=== PATIENT | male | born 1965 | race Caucasian/White ===

== ENCOUNTER 2020-06-15 13:37 | Observation (INO) | payer OTHER ==
[2020-06-15] MEDS ORDERED: SODIUM CHLORIDE 0.9% 1,000 ML IV STA (14:32)
--- NOTE | 2020-06-15 14:36 | ED ---
General Adult HPI - General Chief complaint: Seizure Stated complaint: seizure, syncopal episode Time Seen by Provider: 06/15/20 14:00 Source: patient, RN notes reviewed Mode of arrival: wheelchair Limitations: no limitations - History of Present Illness Initial comments: 55-year-old male presents emergency Department chief complaint of right sided back, rib pain, syncopal episode. Patient states she's had some pain in his back in which he felt he just strained it. Patient states that Saturday night into the morning he developed some severe pain this evening muscular in nature after his muscle relaxer were off. He states that for the bathroom and states that he was very diaphoretic and he felt lightheaded and which she then woke up on the ground with his about him. Patient states she's that he was shaking he did lose control of his bladder. Patient states that he is unsure what happened. He states he went in/himself with cold and hot water and he felt greatly improved and symptoms resolved. Patient states that he again had anoth er episode earlier today in which the pain was severe. Patient is concerned as he was scheduled for stress test yesterday but could not complete this. He states he was told he had an abnormal EKG. Patient states he had a heart cath 12 years ago and had some valve issue. Patient states his pain is mild this time. He does have severe pain with deep inspiration. He feels short of breath. He has no nausea vomiting diarrhea constipation currently. - Related Data Home Medications Medication Instructions Recorded Confirmed No Known Home Medications 07/26/15 07/26/15 Allergies Allergy/AdvReac Type Severity Reaction Status Date / Time No Known Allergies Allergy Verified 06/15/20 13:54 Review of Systems ROS Statement: Those systems with pertinent positive or pertinent negative responses have been documented in the HPI. ROS Other: All systems not noted in ROS Statement are negative. Past Medical History Past Medical History: Hyperlipidemia Additional Past Medical History / Comment(s): HX KIDNEY STONES History of Any Multi-Drug Resistant Organisms: None Reported Past Surgical History: Adenoidectomy, Heart Catheterization, Orthopedic Surgery, Tonsillectomy Additional Past Surgical History / Comment(s): RT ROTATOR CUFF REPAIRED Past Anesthesia/Blood Transfusion Reactions: No Reported Reaction Past Psychological History: No Psychological Hx Reported Smoking Status: Never smoker Past Alcohol Use History: Occasional Past Drug Use History: None Reported - Past Family History Mother Family Medical History: No Reported History General Exam Limitations: no limitations General appearance: alert, in no apparent distress Head exam: Present: atraumatic, normocephalic, normal inspection Eye exam: Present: normal appearance, PERRL, EOMI. Absent: scleral icterus, conjunctival injection, periorbital swelling ENT exam: Present: normal exam, normal oropharynx, mucous membranes moist, TM's normal bilaterally Neck exam: Present: normal inspection, full ROM. Absent: tenderness, meningismus, lymphadenopathy Respiratory exam: Present: normal lung sounds bilaterally, chest wall tenderness (Right lower rib posterior to lateral). Absent: respiratory distress, wheezes, rales, rhonchi, stridor Cardiovascular Exam: Present: regular rate, normal rhythm, normal heart sounds. Absent: systolic murmur, diastolic murmur, rubs, gallop, clicks GI/Abdominal exam: Present: soft, normal bowel sounds. Absent: distended, tenderness, guarding, rebound, rigid Back exam: Absent: CVA tenderness (R), CVA tenderness (L) Neurological exam: Present: alert, oriented X3, CN II-XII intact, reflexes normal. Absent: motor sensory deficit Skin exam: Present: warm, dry, intact, normal color. Absent: rash Course Vital Signs 06/15/20 13:49 Temperature 98.3 F Pulse Rate 69 Respiratory 16 Rate Blood Pressure 102/59 O2 Sat by Pulse 98 Oximetry EKG Findings - EKG Comments: EKG Findings:: EKG performed at 14:57 sinus bradycardia with a rate of 40. 206 QRS 92 QT/QTC 42/392 Medical Decision Making - Medical Decision Making 55-year-old male presented for syncopal episode. Patient's found to have bradycardia with a rate of 40. Patient did have a syncopal episode may related to this. Patient will be admitted for evaluation by medical assisting program director. - Lab Data Result diagrams: 06/15/20 14:47 06/15/20 14:47 Lab Results 06/15/20 06/15/20 06/15/20 Range/Units 14:47 14:47 14:47 WBC 5.7 (3.8-10.6) k/uL RBC 4.61 (4.30-5.90) m/uL Hgb 13.1 (13.0-17.5) gm/dL Hct 39.7 (39.0-53.0) % MCV 86.1 (80.0-100.0) fL MCH 28.5 (25.0-35.0) pg MCHC 33.1 (31.0-37.0) g/dL RDW 12.7 (11.5-15.5) % Plt Count 205 (150-450) k/uL Neutrophils % 59 % Lymphocytes % 30 % Monocytes % 6 % Eosinophils % 3 % Basophils % 1 % Neutrophils # 3.4 (1.3-7.7) k/uL Lymphocytes # 1.7 (1.0-4.8) k/uL Monocytes # 0.4 (0-1.0) k/uL Eosinophils # 0.2 (0-0.7) k/uL Basophils # 0.0 (0-0.2) k/uL PT 9.7 (9.0-12.0) sec INR 0.9 (<1.2) APTT 22.4 (22.0-30.0) sec D-Dimer 0.86 H (<0.60) mg/L FEU Sodium (137-145) mmol/L Potassium (3.5-5.1) mmol/L Chloride (98-107) mmol/L Carbon Dioxide (22-30) mmol/L Anion Gap mmol/L BUN (9-20) mg/dL Creatinine (0.66-1.25) mg/dL Est GFR (CKD-EPI)AfAm (>60 ml/min/1.73 sqM) Est GFR (CKD-EPI)NonAf (>60 ml/min/1.73 sqM) Glucose (74-99) mg/dL Calcium (8.4-10.2) mg/dL Magnesium (1.6-2.3) mg/dL Total Bilirubin (0.2-1.3) mg/dL AST (17-59) U/L ALT (4-49) U/L Alkaline Phosphatase (38-126) U/L Creatine Kinase (55-170) U/L Troponin I (0.000-0.034) ng/mL Total Protein (6.3-8.2) g/dL Albumin (3.5-5.0) g/dL Urine Color Light Yellow Urine Appearance Clear (Clear) Urine pH 6.0 (5.0-8.0) Ur Specific [place] 1.007 (1.001-1.035) Urine Protein Negative (Negative) Urine Glucose (UA) Negative (Negative) Urine Ketones Negative (Negative) Urine Blood Negative (Negative) Urine Nitrite Negative (Negative) Urine Bilirubin Negative (Negative) Urine Urobilinogen <2.0 (<2.0) mg/dL Ur Leukocyte Esterase Negative (Negative) 06/15/20 06/15/20 Range/Units 14:47 14:47 WBC (3.8-10.6) k/uL RBC (4.30-5.90) m/uL Hgb (13.0-17.5) gm/dL Hct (39.0-53.0) % MCV (80.0-100.0) fL MCH (25.0-35.0) pg MCHC (31.0-37.0) g/dL RDW (11.5-15.5) % Plt Count (150-450) k/uL Neutrophils % % Lymphocytes % % Monocytes % % Eosinophils % % Basophils % % Neutrophils # (1.3-7.7) k/uL Lymphocytes # (1.0-4.8) k/uL Monocytes # (0-1.0) k/uL Eosinophils # (0-0.7) k/uL Basophils # (0-0.2) k/uL PT (9.0-12.0) sec INR (<1.2) APTT (22.0-30.0) sec D-Dimer (<0.60) mg/L FEU Sodium 138 (137-145) mmol/L Potassium 4.5 (3.5-5.1) mmol/L Chloride 106 (98-107) mmol/L Carbon Dioxide 23 (22-30) mmol/L Anion Gap 9 mmol/L BUN 19 (9-20) mg/dL Creatinine 0.85 (0.66-1.25) mg/dL Est GFR (CKD-EPI)AfAm >90 (>60 ml/min/1.73 sqM) Est GFR (CKD-EPI)NonAf >90 (>60 ml/min/1.73 sqM) Glucose 88 (74-99) mg/dL Calcium 9.5 (8.4-10.2) mg/dL Magnesium 2.3 (1.6-2.3) mg/dL Total Bilirubin 0.6 (0.2-1.3) mg/dL AST 21 (17-59) U/L ALT 18 (4-49) U/L Alkaline Phosphatase 78 (38-126) U/L Creatine Kinase 74 (55-170) U/L Troponin I <0.012 (0.000-0.034) ng/mL Total Protein 7.8 (6.3-8.2) g/dL Albumin 4.8 (3.5-5.0) g/dL Urine Color Urine Appearance (Clear) Urine pH (5.0-8.0) Ur Specific [place] (1.001-1.035) Urine Protein (Negative) Urine Glucose (UA) (Negative) Urine Ketones (Negative) Urine Blood (Negative) Urine Nitrite (Negative) Urine Bilirubin (Negative) Urine Urobilinogen (<2.0) mg/dL Ur Leukocyte Esterase (Negative) Disposition Clinical Impression: Bradycardia, Syncope, Back pain Disposition: ADMITTED IP TO THIS HOSP Condition: Fair Referrals: Aparna Singh III, MD [Primary Care Provider] - 1-2 days
[2020-06-15 15:01] LABS: Basophils % (A) 1 %; Eosinophils # (A) 0.2 k/uL (0-0.7); Eosinophils % (A) 3 %; HCT 39.7 % (39.0-53.0); HGB 13.1 gm/dL (13.0-17.5); Lymphocytes # (A) 1.7 k/uL (1.0-4.8); Lymphocytes % (A) 30 %; MCH 28.5 pg (25.0-35.0); MCHC 33.1 g/dL (31.0-37.0); MCV 86.1 fL (80.0-100.0); Monocytes # (A) 0.4 k/uL (0-1.0); Monocytes % (A) 6 %; Neutrophils # (A) 3.4 k/uL (1.3-7.7); Neutrophils % (A) 59 %; Platelet Count 205 k/uL (150-450); RBC 4.61 m/uL (4.30-5.90); RDW 12.7 % (11.5-15.5); WBC 5.7 k/uL (3.8-10.6)
[2020-06-15 15:09] LABS: ALT 18 U/L (4-49); AST 21 U/L (17-59); African American GFR (CKD) >90 (>60 ml/min/1.73 sqM); Albumin 4.8 g/dL (3.5-5.0); Alkaline Phosphatase 78 U/L (38-126); Anion Gap 9 mmol/L; Blood Urea Nitrogen 19 mg/dL (9-20); Calcium 9.5 mg/dL (8.4-10.2); Carbon Dioxide 23 mmol/L (22-30); Chloride 106 mmol/L (98-107); Creatine Kinase 74 U/L (55-170); Glucose 88 mg/dL (74-99); Magnesium 2.3 mg/dL (1.6-2.3); Non-African American GFR(CKD) >90 (>60 ml/min/1.73 sqM); Potassium 4.5 mmol/L (3.5-5.1); Sodium 138 mmol/L (137-145); Total Bilirubin 0.6 mg/dL (0.2-1.3); Total Protein 7.8 g/dL (6.3-8.2)
[2020-06-15 15:12] LABS: Appearance,Urine Clear (Clear); Bilirubin,Urine Negative (Negative); Blood,Urine Negative (Negative); Color,Urine Light Yellow; Glucose,Urine (UA) Negative (Negative); Ketones,Urine Negative (Negative); Leukocyte Esterase,Urine Negative (Negative); Nitrite,Urine Negative (Negative); Protein,Urine Negative (Negative); Specific Gravity,Urine 1.007 (1.001-1.035); Urobilinogen,Urine <2.0 mg/dL (<2.0)
[2020-06-15 15:19] LABS: INR 0.9 (<1.2); Partial Thromboplastin Time 22.4 sec (22.0-30.0); Prothrombin Time 9.7 sec (9.0-12.0)
[2020-06-15 15:25] LABS: D-Dimer 0.86 mg/L FEU (<0.60)
--- NOTE | 2020-06-15 15:30 | XR ---
EXAMINATION TYPE: XR chest 2V DATE OF EXAM: 06/15/2020 COMPARISON: None HISTORY: 55-year-old male with syncope TECHNIQUE: PA and lateral views FINDINGS: The cardiomediastinal silhouette, aorta, and pulmonary vasculature are within normal limits. Lungs an d pleural spaces are clear. IMPRESSION: No acute cardiopulmonary process.
--- NOTE | 2020-06-15 16:33 | CT ---
EXAMINATION TYPE: CT chest angio for PE DATE OF EXAM: 06/15/2020 COMPARISON: Chest x-ray same date HISTORY: back spasms causing difficulty breathing CT DLP: 432.1 mGycm Automated exposure control for dose reduction was used. CONTRAST: CT Chest for pulmonary embolism performed with with IV Contrast, patient injected with 100 mL of Isov ue 370. Three-dimensional reconstructions performed on an alternate workstation. FINDINGS: LUNGS: The lungs are grossly clear, there is no concerning parenchymal mass or nodule identified. T here is no pleural effusion or pneumothorax seen. The tracheobronchial tree is patent. MEDIASTINUM: There is satisfactory enhancement of the pulmonary artery and its branches, there is no CT evidence for pulmonary embolism. There are no greater than 1 cm hilar or mediastinal lymph nodes. Heart is overlying enlarged. No pericardial effusion is seen. AORTA: No additional significant abnormality is seen. OTHER: Probable cortical cyst present lower pole left kidney measuring approximately 19 mm IMPRESSION: No evident pulmonary embolism. Borderline cardiomegaly.
[2020-06-15] MEDS ORDERED: NITROGLYCERIN SL TABS 0.4 MG TAB SUBLINGUAL PRN (16:49)
[2020-06-15] MEDS: HYDROcodone/APAP 5-325MG 1 EACH TAB PO PRN (20:50)
[2020-06-16] MEDS: HYDROcodone/APAP 5-325MG 1 EACH TAB PO PRN (03:22)
[2020-06-16 04:40] LABS: Cholesterol 251 mg/dL (<200); HDL Cholesterol 48 mg/dL (40-60); LDL Cholesterol,Calculated 161 mg/dL (0-99); Triglycerides 211 mg/dL (<150)
[2020-06-16] MEDS ORDERED: IBUPROFEN 600 MG TAB PO STA (07:59)
--- NOTE | 2020-06-16 10:13 | P.CRDCN ---
History of Present Illness History of present illness: HISTORY OF PRESENTING ILLNESS This is a pleasant 55-year-old male past medical history significant for dyslipidemia and former nicotine dependence. He denies prior history of coronary artery disease. He states he underwent a cardiac catheterization approximately 12 years ago that was unremarkable other than having what he describes as a "sloppy" valve. We have been asked to see in consultation for syncope. He states he injured his back on Saturday lifting a generator. He has been having back spasms on the right mid thoracic region since that time. Yesterday morning he woke up to take some more anti-inflammatory medication and while walking he stops to turn his air conditioner on at the thermostat in the next thing he remembers his was waking him up on the floor. He denies feeling dizzy prior to passing out. He had no symptoms of chest pain, shortness of breath, palpitations, nausea, vomiting or diaphoresis. When he woke up his told him that he had what she thought was a seizure. He apparently became very stiff and rigid and his eyes were flapping opening closed and he did lose control of his bladder. When he woke up he states he was drenched in sweat. He still denies any dizziness or chest pain. He continues to have significant discomfort in the right thoracic region that is episodic. He recently saw his primary care physician and was scheduled to undergo an outpatient stress test in the office on Saturday however he did cancel this appointment secondary to his back discomfort. DIAGNOSTICS EKG revealsbradycardia heart rate of 40. Telemetry tracings reveal persistent sinus bradycardia. Chest xray negative for acute cardiopulmonary process. CT of the chest is negative for pulmonary embolism. Laboratory reviewed, BC unremarkable, d-dimer 0.86, sodium 138, potassium 4.5, creatinine 0.85, cardiac enzymes negative 2, LDL 161 and TSH 1.62. He takes no daily cardiac medications. REVIEW OF SYSTEMS At the time of my exam: CONSTITUTIONAL: Denies fever or chills. CARDIOVASCULAR: Denies chest pain, shortness of breath, orthopnea, PND or palpitations. RESPIRATORY: Denies cough. GASTROINTESTINAL: Denies abdominal pain, diarrhea, constipation, nausea or vomiting. MUSCULOSKELETAL: Denies myalgias. NEUROLOGIC: Denies numbness, tingling or weakness. ENDOCRINE: Denies fatigue, weight change, polydipsia or polyurina. GENITOURINARY: Denies burning, hematuria or urgency with micturation. HEMATOLOGIC: Denies history of anemia or bleeding. PHYSICAL EXAMINATION Blood pressure 109/63 heart rate 52 afebrile and maintaining oxygen saturation on room air. CONSTITUTIONAL: No apparent distress. HEENT: Head is normocephalic. Pupils are equal, round. Sclerae anicteric. Mucous membranes of the mouth are moist. No JVD. No carotid bruit. CHEST EXAMINATION: Lungs are clear to auscultation. No chest wall tenderness is noted on palpation or with deep breathing. HEART EXAMINATION: Regular rate and rhythm. S1, S2 heard. No murmurs, gallops or rub. ABDOMEN: Soft, nontender. Positive bowel sounds. EXTREMITIES: 2+ peripheral pulses, no lower extremity edema and no calf tenderness. NEUROLOGIC EXAMINATION: Patient is awake, alert and oriented x3. ASSESSMENT Syncope Possible seizure activity Back injury Dyslipidemia PLAN This episode of syncope likely related to vagal response to significant pain however on clear if the bradycardia played a roll or what he had was a seizure. According to the patient his heart rate has always run on the low side and he is asymptomatic on a regular basis. We will continue to monitor on telemetry and apply an event monitor upon discharge. Obtain 2D echocardiogram and doppler study to assess cardiac structure and function. Recommend neurology evaluation. Thank you kindly for this consultation. Nurse Practitioner note has been reviewed, I agree with a documented findings and plan of care. Patient was seen and examined. Past Medical History Past Medical History: Hyperlipidemia Additional Past Medical History / Comment(s): HX KIDNEY STONES History of Any Multi-Drug Resistant Organisms: None Reported Past Surgical History: Adenoidectomy, Heart Catheterization, Orthopedic Surgery, Tonsillectomy Additional Past Surgical History / Comment(s): RT ROTATOR CUFF REPAIRED Past Anesthesia/Blood Transfusion Reactions: No Reported Reaction Past Psychological History: No Psychological Hx Reported Smoking Status: Former smoker Past Alcohol Use History: Occasional Past Drug Use History: None Reported - Past Family History Mother Family Medical History: No Reported History Medications and Allergies Home Medications Medication Instructions Recorded Confirmed Type Ibuprofen [Motrin Ib] 400 mg PO Q6H PRN 06/15/20 06/15/20 History Ibuprofen [Motrin Ib] 600 mg PO DAILY 06/15/20 06/15/20 History Allergies Allergy/AdvReac Type Severity Reaction Status Date / Time No Known Allergies Allergy Verified 06/15/20 17:14 Physical Exam Vitals: Vital Signs Temp Pulse Pulse Resp BP BP Pulse Ox 06/16/20 03:00 97.6 F 62 16 100/60 95 06/15/20 21:00 18 06/15/20 19:42 97.7 F 52 L 18 113/67 98 06/15/20 19:16 98.3 F 60 18 126/83 99 06/15/20 18:00 60 18 99 06/15/20 17:00 57 L 18 99 06/15/20 16:54 59 L 18 126/83 99 06/15/20 15:54 58 L 18 120/95 99 06/15/20 14:54 18 06/15/20 13:54 18 06/15/20 13:49 98.3 F 69 16 102/59 98 Intake and Output 06/15/20 06/16/20 06/16/20 22:59 06:59 14:59 Other: Voiding Method Toilet Toilet # Voids 1 Weight 83.915 kg Results 06/15/20 14:47 06/15/20 14:47 Cardiac Enzymes 06/15/20 06/15/20 Range/Units 14:47 14:47 AST 21 (17-59) U/L Troponin I <0.012 (0.000-0.034) ng/mL Coagulation 06/15/20 Range/Units 14:47 PT 9.7 (9.0-12.0) sec APTT 22.4 (22.0-30.0) sec Lipids 06/15/20 Range/Units 14:47 Triglycerides 211 H (<150) mg/dL Cholesterol 251 H (<200) mg/dL HDL Cholesterol 48 (40-60) mg/dL CBC 06/15/20 Range/Units 14:47 WBC 5.7 (3.8-10.6) k/uL RBC 4.61 (4.30-5.90) m/uL Hgb 13.1 (13.0-17.5) gm/dL Hct 39.7 (39.0-53.0) % Plt Count 205 (150-450) k/uL Comprehensive Metabolic Panel 06/15/20 Range/Units 14:47 Sodium 138 (137-145) mmol/L Potassium 4.5 (3.5-5.1) mmol/L Chloride 106 (98-107) mmol/L Carbon Dioxide 23 (22-30) mmol/L BUN 19 (9-20) mg/dL Creatinine 0.85 (0.66-1.25) mg/dL Glucose 88 (74-99) mg/dL Calcium 9.5 (8.4-10.2) mg/dL AST 21 (17-59) U/L ALT 18 (4-49) U/L Alkaline Phosphatase 78 (38-126) U/L Total Protein 7.8 (6.3-8.2) g/dL Albumin 4.8 (3.5-5.0) g/dL Current Medications Generic Name Dose Route Start Last Admin Trade Name Freq PRN Reason Stop Dose Admin Hydrocodone Bitart/Acetaminophen 1 each 06/15/20 20:35 06/16/20 03:22 [place] 5-325 PO 1 each Q6HR PRN Administration Pain Nitroglycerin 0.4 mg 06/15/20 16:49 Nitrostat SUBLINGUAL Q5M PRN Chest Pain Intake and Output 06/15/20 06/16/20 06/16/20 22:59 06:59 14:59 Other: Voiding Method Toilet Toilet # Voids 1 Weight 83.915 kg 06/15/20 14:47 06/15/20 14:47
--- NOTE | 2020-06-16 11:56 | P.HPIM ---
History of Present Illness H&P Date: 06/16/20 Chief Complaint: Syncopal episode and right-sided low back pain Mr. Tamayo is a 55-year-old male, who follows with Dr. Singh in outpatient setting, with a past medical history of hyperlipidemia, nephrolithiasis coming in with a chief complaint of right-sided upper muscle spasm. 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 His was in on the room and when he came to check on him she told him that his eyes were popped out and that he lost control of his bladder. Patient denies having any tongue bites. He could only feel a sharp pain in his back and later noticed that he was on the floor. Patient denies hitting his head. He denies having any headaches or blurring of vision. Patient states he had an episode of passing out in September 2019, that he thinks happened because he of alcohol intoxication. Patient denies having any history of seizures. He denies having any family history of seizures. Patient drinks only over the weekends. Patient denied having any chest pain or palpitations. He does not have any underlying cardiac history. He has 10 pack years of smoking quit 10-15 years back. He does not take any medications on a regular basis. When he had this back pain he took a muscle relaxant from his friend, he does not know what medication it is but he took 2 pills. His pain is mostly on the right upper back, does not radiate. It is worse and on turning or twisting in certain angle. Patient denies having any tingling or numbness in his feet. He thinks he tore a muscle. Patient denies having any pain radiating from the back to his groin. No blood in his urine. No dysuria or hematuria. Patient denies having any fevers chills or rigors. Patient also states that he was scheduled for a stress test but could not do it as he was told that he had an abnormal EKG he did states that he had a cardiac cath 12 years ago had some issues. In the ER patient had an EKG showing sinus bradycardia with a heart rate of 20. Patient also had a CTA of the chest showing no evidence of PE, borderline cardiomegaly. Probable cortical cyst present in the left lower lobe measuring approximately 19 mm. Patient's labs are reviewed white count of 5.7, hemoglobin 13.1 platelets 205. PT/INR normal. Sodium 138, pronation 4.5, chloride 103, bicarbonate 28, when necessary 19, creatinine 0.85. Urine analysis is negative for leukocyte esterase or blood. Review of Systems EVIEW OF SYSTEMS: CONSTITUTIONAL: No fever, no malaise, no fatigue. HEENT: No recent visual problems or hearing problems. Denied any sore throat. CARDIOVASCULAR: No chest pain, palpitations. No lower extremity edema. PULMONARY: no cough, no hemoptysis. GASTROINTESTINAL: No diarrhea, no nausea, no abdominal pain. NEUROLOGICAL: As per HPI HEMATOLOGICAL: Denies any bleeding or petechiae. GENITOURINARY: Denies any burning micturition, frequency, or urgency. MUSCULOSKELETAL/RHEUMATOLOGICAL: No joint swelling or pain ENDOCRINE: Denies any polyuria or polydipsia. The rest of the 13-point review of systems is negative. Past Medical History Past Medical History: Hyperlipidemia Additional Past Medical History / Comment(s): HX KIDNEY STONES History of Any Multi-Drug Resistant Organisms: None Reported Past Surgical History: Adenoidectomy, Heart Catheterization, Orthopedic Surgery, Tonsillectomy Additional Past Surgical History / Comment(s): RT ROTATOR CUFF REPAIRED Past Anesthesia/Blood Transfusion Reactions: No Reported Reaction Past Psychological History: No Psychological Hx Reported Smoking Status: Former smoker Past Alcohol Use History: Occasional Past Drug Use History: None Reported - Past Family History Mother Family Medical History: No Reported History Medications and Allergies Home Medications Medication Instructions Recorded Confirmed Type Ibuprofen [Motrin Ib] 400 mg PO Q6H PRN 06/15/20 06/15/20 History Ibuprofen [Motrin Ib] 600 mg PO DAILY 06/15/20 06/15/20 History Allergies Allergy/AdvReac Type Severity Reaction Status Date / Time No Known Allergies Allergy Verified 06/15/20 17:14 Physical Exam Vitals: Vital Signs Temp Pulse Pulse Resp BP BP Pulse Ox 06/16/20 09:00 52 L 14 06/16/20 08:00 97.5 F L 52 L 14 109/63 98 06/16/20 03:00 97.6 F 62 16 100/60 95 06/15/20 21:00 18 06/15/20 19:42 97.7 F 52 L 18 113/67 98 06/15/20 19:16 98.3 F 60 18 126/83 99 06/15/20 18:00 60 18 99 06/15/20 17:00 57 L 18 99 06/15/20 16:54 59 L 18 126/83 99 06/15/20 15:54 58 L 18 120/95 99 06/15/20 14:54 18 06/15/20 13:54 18 06/15/20 13:49 98.3 F 69 16 102/59 98 Intake and Output 06/15/20 06/16/20 06/16/20 22:59 06:59 14:59 Intake Total 240 Balance 240 Intake: Oral 240 Other: Voiding Method Toilet Toilet Toilet # Voids 1 1 Weight 83.915 kg PHYSICAL EXAMINATION: GENERAL: Appears to be no acute distress. HEENT: Pupils are round and equally reacting to light. EOMI. noscleral icterus. No conjunctival pallor. Normocephalic, atraumatic. CARDIOVASCULAR: S 1 , S 2 heard . No additional sounds. PULMONARY: Bilateral breath sounds are positive. No wheeze or crackles. ABDOMEN: Soft, nontender, nondistended, normoactive bowel sounds. No palpable organomegaly. MUSCULOSKELETAL: Tenderness in the upper right side of the back on deep palpation. No midline point tenderness over the back EXTREMITIES: No cyanosis, clubbing, mild pedal edema. NEUROLOGICAL: Gross neurological examination did not reveal any focal deficits. SKIN: No rash Results CBC & Chem 7: 06/15/20 14:47 06/15/20 14:47 Labs: Abnormal Lab Results - Last 24 Hours (Table) 06/15/20 06/15/20 Range/Units 14:47 14:47 D-Dimer 0.86 H (<0.60) mg/L FEU Triglycerides 211 H (<150) mg/dL Cholesterol 251 H (<200) mg/dL LDL Cholesterol, Calc 161 H (0-99) mg/dL Assessment and Plan Assessment: ASSESSMENT Syncopal episode Severe right-sided back muscle spasm Bradycardia Dyslipidemia PLAN: Patient had severe right-sided back muscle spasm that made him have a syncopal episode. Patient lost control of his bladder. We'll have neurology consult. His EKG was showing sinus bradycardia as well. Patient had CTA of the chest that was negative for PE. Will get an MRI of the back. Cardiology on board. Further recommendations to follow depending on the progress of the patient.
--- NOTE | 2020-06-16 12:00 | ECHOF ---
Referral Reason:syncope MEASUREMENTS -------- HEIGHT: 185.4 cm WEIGHT: 83.9 kg BP: 100/60 RVIDd: 3.1 cm (< 3.3) IVSd: 1.1 cm (0.6 - 1.1) LVIDd: 5.2 cm (3.9 - 5.3) LVPWd: 1.1 cm (0.6 - 1.1) IVSs: 1.8 cm LVIDs: 3.4 cm LVPWs: 1.7 cm LA Diam: 3.8 cm (2.7 - 3.8) Ao Diam: 3.8 cm (2.0 - 3.7) AV Cusp: 2.4 cm (1.5 - 2.6) MV EXCURSION: 19.089 mm (> 18.000) MV EF SLOPE: 127 mm/s (70 - 150) EPSS: 0.7 cm MV E Darwin: 0.75 m/s MV DecT: 312 ms MV A Darwin: 0.66 m/s MV E/A Ratio: 1.14 AR PHT: 853 ms RAP: 5.00 mmHg RVSP: 28.12 mmHg FINDINGS -------- Resting bradycardia (HR<60bpm). This was a technically good study. The left ventricular size is normal. There is borderline concentric left ventricular hypertrophy. Overall left ventricular systolic function is normal with, an EF between 55 - 60 %. The right ventricle is normal in size. Normal LA size by volume 22+/-6 ml/m2. The right atrium is normal in size. Interatrial and interventricular septum intact. Aortic valve is trileaflet and is mildly thickened. Trace to mild aortic regurgitation. Mild mitral regurgitation is present. Mild tricuspid regurgitation present. Right ventricular systolic pressure is normal at < 35 mmHg. There is no pulmonic regurgitation present. The aortic root is dilated measuring 3.8cm. The inferior vena cava is mildly dilated. There is no pericardial effusion. CONCLUSIONS -------- 1. Resting bradycardia (HR<60bpm). 2. The left ventricular size is normal. 3. There is borderline concentric left ventricular hypertrophy. 4. Overall left ventricular systolic function is normal with, an EF between 55 - 60 %. 5. Aortic valve is trileaflet and is mildly thickened. 6. Trace to mild aortic regurgitation. 7. Mild mitral regurgitation is present. 8. The aortic root is dilated measuring 3.8cm. 9. There is no pericardial effusion. MAC ARTIST: Yelena Stovall RDCS
--- NOTE | 2020-06-16 14:37 | P.CNNES ---
History of Present Illness Consult date: 06/16/20 Requesting physician: Diya Brand Reason for Consult: Possible seizure History of Present Illness: This is a 55-year-old right-handed gentleman with medical history of hyperlipidemia, nephrolithiasis, ex-tobacco use that presented to the emergency department on 06/15/2020 for episode of loss of consciousness. Patient stated that on 06/13/2020 and he was the lifting generator and felt like he pulled a muscle he was having pain in the right lower of the rib area around the flank area. He felt was like 8-9 out of 10 he couldn't describe the pain he would have these episodes of muscle spasm. He took a new muscle relaxant pill from his friend he doesn't know the name he took 2 pills that day. Then on 06/14/2020 around 1:30 AM the patient woke up because of the pain and that he went to the get some the ibuprofen then went to change the thermostat and all of a sudden the he found himself on the floor. When woke up he found his next to him. Per the patient the the woke up from the noise of fall. He said prior to the episode he was having this flushing episode because of the pain that he was having. He didn't have any lightheadedness any dizziness any of her blurry vision any chest pain or irregular heartbeat. When he woke up he had the urinary incontinence. His noted that his eyes was "popping out". did not note any jerking episodes or again and no eyes rolling back. The patient denies any tongue soreness or tongue bite. No bowel incontinence. Patient recovered the according to him very quickly. Patient also had an episode of passing out in the September 2019 but he stated that he was going to bathroom but he was heavily drunk at that time. Nobody witnessed the episode. He denied any all call use on the day of the passing out episode on 06/14/2020. Denies any fever. Of note patient has been having this right lower rib near the flank area pain for the last 2 months he said it started when he golfed about 2 months ago. But the pain was very mild. He says that stiff and then his kidney stone presentation. In the hospital the patient's workup was: Vital signs was blood pressure 102/59 presentation, heart rate of 69, respiratory rate is 16, temperature of 98.3 Fahrenheit oral, pulse ox 98 at room air. EKG which show was reported as marketed sinus bradycardia heart rate of 40. CTA of the chest was negative for a pulmonary embolism. 2-D echo was reported as ejection fraction of 55-60%. Resting bradycardia less than 60. Left ventricle size is normal. Review of Systems Review of system: The 12 point system was reviewed and apparent positive and negative per HPI. Past Medical History Past Medical History: Hyperlipidemia Additional Past Medical History / Comment(s): HX KIDNEY STONES History of Any Multi-Drug Resistant Organisms: None Reported Past Surgical History: Adenoidectomy, Heart Catheterization, Orthopedic Surgery, Tonsillectomy Additional Past Surgical History / Comment(s): RT ROTATOR CUFF REPAIRED Past Anesthesia/Blood Transfusion Reactions: No Reported Reaction Past Psychological History: No Psychological Hx Reported Smoking Status: Former smoker Past Alcohol Use History: Occasional Past Drug Use History: None Reported - Past Family History Mother Family Medical History: No Reported History Medications and Allergies Home Medications Medication Instructions Recorded Confirmed Type Ibuprofen [Motrin Ib] 400 mg PO Q6H PRN 06/15/20 06/15/20 History Ibuprofen [Motrin Ib] 600 mg PO DAILY 06/15/20 06/15/20 History Allergies Allergy/AdvReac Type Severity Reaction Status Date / Time No Known Allergies Allergy Verified 06/15/20 17:14 Physical Examination - Vital Signs Vital Signs: Vital Signs Temp Pulse Pulse Resp BP BP Pulse Ox 06/16/20 09:00 52 L 14 06/16/20 08:00 97.5 F L 52 L 14 109/63 98 06/16/20 03:00 97.6 F 62 16 100/60 95 06/15/20 21:00 18 06/15/20 19:42 97.7 F 52 L 18 113/67 98 06/15/20 19:16 98.3 F 60 18 126/83 99 06/15/20 18:00 60 18 99 06/15/20 17:00 57 L 18 99 06/15/20 16:54 59 L 18 126/83 99 06/15/20 15:54 58 L 18 120/95 99 06/15/20 14:54 18 06/15/20 13:54 18 06/15/20 13:49 98.3 F 69 16 102/59 98 Intake and Output 06/15/20 06/16/20 06/16/20 22:59 06:59 14:59 Intake Total 462 Balance 462 Intake: Oral 462 Other: Voiding Method Toilet Toilet Toilet # Voids 1 1 Weight 83.915 kg GENERAL: The patient is lying in bed and is not in acute distress. CHEST: The heart rate is regular rate rhythm. No murmurs to auscultation. LUNG: Clear to auscultation bilaterally no wheezing noted throughout. Not labored breathing. ABDOMEN/GI: Bowel sounds present in all 4 quadrants. No tenderness to palpation throughout. NEUROLOGICAL: Higher mental function: The patient is awake, alert, oriented to self, place and time. Patient is following commands. No aphasia and no neglect. Cranial nerves: The pupils are round, equal and reactive to light and accommo dation. Visual fowler are full to confrontation throughout. Extraocular movement is intact no nystagmus is noted. Facial sensation is normal to touch throughout. The facial strength is normal throughout. Hearing is normal bilaterally to hand rub. Tongue is midline and moved [id number] without any difficulty. No dysarthria is noted. Shoulder shrug is normal bilaterally. Motor: The strength is 5 over 5 throughout. Normal tone and bulk. Cerebellum: Normal finger to nose bilaterally. Sensation: Sensation is normal to touch throughout. Reflexes (right/left): Biceps 2+ throughout. Plantars are downgoing bilaterally. Results Lipid profile: Triglyceride is 211, cholesterol is 251, LDL is 161, HDL is 48. His TSH is 1.62. PT is 9.7, INR 0.9, PTT is 22.4. - Laboratory Findings CBC and BMP: 06/15/20 14:47 06/15/20 14:47 Abnormal Lab Findings: Abnormal Labs 06/15/20 06/15/20 14:47 14:47 D-Dimer 0.86 H Triglycerides 211 H Cholesterol 251 H LDL Cholesterol, Calc 161 H Assessment and Plan Assessment: Mr. Tamayo is a 55-year-old right-handed gentleman with medical history of hyperlipidemia, nephrolithiasis, ex-tobacco use that presented to the emergency department on 06/15/2020 for episode of loss of consciousness. On 06/13/2020 he has right flank pain after lifting something. Then 06/14/20 woke-up with pain and went change thermomator and felt drenched from pain then passed out with urinary incontinence. Per no jerking episodes. No tongue bite. No rolling of the eye backward. Patient recovered fairly quickly. Patient had an episode of passing out in September 2019 and the he said he was intoxicated. No history of seizures or family history of seizures. Sycopal episode. Seems more like vasovagal syncope (severe pain of right flank area and was sweating then had episode of syncope. Unlikely seizure. Bradycardia History of nephrolithiasis Plan: I'll order CT the brain that. I'll order routine EEG. Patient's episode does not seem like a seizure and likely seems more vasovagal syncope. His episode in September 2019 the was a result of intoxication. As a result I would not start him on any antiepileptic drugs at this time unless the EEG shows a seizure that captured. Cardiology is following up with the patient. Upon discharge the patient needs to follow up with a neurologist as outpatient. If patient continues to have these episodes consider repeating EEGs. Or consider long-term EEGs. Thank you for the consult. Irving Go M.D. Neuro-hospitalist Time with Patient: Greater than 30
--- NOTE | 2020-06-16 16:09 | MR ---
EXAMINATION TYPE: MR thoracic spine wo con DATE OF EXAM: 06/16/2020 COMPARISON: CTA chest from yesterday. HISTORY: Back pain/spasms TECHNIQUE: Multiplanar, multisequence imaging of thoracic spine is performed without contrast FINDINGS: Localizer shows reversal of normal cervical curvature centered C4-C5 level. Spinal cord sh ows normal course, caliber, and signal as it courses the thoracic spine. Vertebral body heights and alignment are satisfactory. There are multilevel small posterior disc herniations effacing anterior t hecal sac from T2-T3 through the T11-T12 levels on sagittal images. Heterogeneous Modic type I endpla te changes noted anterior T4-T5 level. Mild multilevel anterior spurring in the lower thoracic spine. Review of the axial images confirms multilevel small posterior disc herniations efface the anterior t hecal sac greatest in the mid thoracic spine. Visualized thorax and upper abdomen show no suspicious abnormality. Paraspinal muscle bulk is maintained. IMPRESSION: Multilevel small posterior disc herniations efface the anterior thecal sac.
[2020-06-16] MEDS: IBUPROFEN 600 MG TAB PO PRN ×2 (16:37→22:21)
--- NOTE | 2020-06-16 18:12 | CT ---
EXAMINATION TYPE: CT brain wo con DATE OF EXAM: 06/16/2020 COMPARISON: None HISTORY: 55-year-old male Seizure TECHNIQUE: Examination was done in axial plane without intravenous contrast. Coronal and sagittal r econstructions performed. CT DLP: 1141 mGycm Automated exposure control for dose reduction was used. FINDINGS: There is no evidence of acute intracranial hemorrhage, acute ischemic changes, mass, mass-effect, or extra-axial fluid collection. There is no effacement of cerebral sulci or basal subarachnoid cister ns. There is no hydrocephalus. There is no midline shift. Payne-white matter distinction is preserv ed. Scattered mild mucosal thickening ethmoid air cells. Orbits and globes are intact. Mastoid air cells are well pneumatized. IMPRESSION: No acute intracranial abnormality seen.
[2020-06-17] MEDS: IBUPROFEN 600 MG TAB PO PRN ×2 (03:58→10:02)
[2020-06-17] MEDS ORDERED: CYCLOBENZAPRINE 10 MG TAB PO PRN (08:52)
--- NOTE | 2020-06-17 10:24 | P.PN ---
Subjective HISTORY OF PRESENTING ILLNESS This is a pleasant 55-year-old male past medical history significant for dyslipidemia and former nicotine dependence. He denies prior history of coronary artery disease. He is seen and examined sitting up in the chair in no acute distress. He has had no further symptoms of syncope since arriving. He continues to complain of significant back discomfort. Echocardiogram obtained reveals normal LV systolic function with no significant valvular abnormalities. Blood pressure 124/78 heart rate 65 afebrile maintaining oxygen saturation on room air. Telemetry tracings continued to show sinus bradycardia mostly at night while sleeping. He is asymptomatic. Neurology is following and has ordered an EEG and an MRI of the back. PHYSICAL EXAMINATION CONSTITUTIONAL: No apparent distress. HEENT: Head is normocephalic. Pupils are equal, round. Sclerae anicteric. Mucous membranes of the mouth are moist. No JVD. No carotid bruit. CHEST EXAMINATION: Lungs are clear to auscultation. No chest wall tenderness is noted on palpation or with deep breathing. HEART EXAMINATION: Regular rate and rhythm. S1, S2 heard. No murmurs, gallops or rub. EXTREMITIES: 2+ peripheral pulses, no lower extremity edema and no calf tenderness. ASSESSMENT Syncope Possible seizure activity Back injury Dyslipidemia PLAN No evidence of bradycardia arrhythmia to account for his syncope. We will apply a 30 day event monitor upon discharge. Follow-up in the office with Dr. Guerra in 6 weeks. Recommend he has an outpatient sleep study. Nurse Practitioner note has been reviewed, I agree with a documented findings and plan of care. Patient was seen and examined. Objective - Vital Signs Vital signs: Vital Signs Temp 97.4 F L 06/17/20 09:00 Pulse 65 06/17/20 09:00 Resp 18 06/17/20 09:00 BP 124/78 06/17/20 09:00 Pulse Ox 100 06/17/20 09:00 Intake & Output 06/16/20 06/17/20 06/17/20 18:59 06:59 18:59 Intake Total 684 Balance 684 Intake: Oral 684 Other: Voiding Method Toilet Toilet # Voids 4 1 - Labs CBC & Chem 7: 06/15/20 14:47 06/15/20 14:47
[2020-06-17 16:22] VITALS: BP 98/60; PULSE 59; RESP 16; TEMP 97.8
--- NOTE | 2020-06-17 16:41 | EEG ---
ELECTROENCEPHALOGRAM REPORT DATE OF SERVICE: 06/17/2020 CLINICAL HISTORY: This is a 55-year-old gentleman with a reported history of hyperlipidemia, nephrolithiasis, that presented to the emergency department on 06/15/2020 after having an episode of loss of consciousness. This EEG was obtained to evaluate for seizure and epileptiform activity. EEG TYPE: A routine 21 channel EEG was performed with video using the 10-20 electrode placement system. His description, wakefulness, drowsiness and stage 2 sleep are obtained. During wakefulness, there is a posterior dominant rhythm of low to moderate voltage, reactive,. well modulated of 10 to 0.5 hertz activity. During drowsiness there is slowing and attenuation of the background. During stage 2 sleep, there are sleep spindles and K complexes. Interictal and ictal none. ACTIVATION PROCEDURE: Photic stimulation did not evoke a posterior driving response at 8 hertz symmetrically. Hyperventilation was not performed because of patient's clinical history. EEG DIAGNOSIS: This is a normal EEG. CLINICAL INTERPRETATION: This is a normal routine awake, drowsy, and sleep study. There is no focal slowing noted during the study. There is no epileptiform activity or seizure during the study. Clinical correlation is recommended. MMODL / IJN: [id number] / MTDClayton
--- NOTE | 2020-06-17 18:39 | MR ---
EXAMINATION TYPE: MR lumbar spine wo con DATE OF EXAM: 06/17/2020 COMPARISON: None HISTORY: Back pain Multiplanar multiecho imaging of the lumbar spine was performed with no contrast. Lumbar vertebra have normal alignment. There is mild uniform narrowing of lumbar disc spaces. There i s no compression fracture. There is minimal posterior disc bulging at all levels of the lumbar spine. There is developmentally adequate spinal canal and no spinal stenosis. The posterior elements are in tact. Sacroiliac joints are intact. There is no lumbar paraspinal mass. There is no compression fract ure. I see no significant neural foraminal narrowing. There is no evidence of focal bone destruction. IMPRESSION: Mild multilevel spondylotic changes. No fracture seen. No spinal stenosis. Minimal multilevel posteri or disc bulging.
--- NOTE | 2020-06-17 23:47 | P.DS ---
Providers Date of admission: 06/15/20 16:26 Expected date of discharge: 06/17/20 Attending physician: Cait Jolly Consults: 06/15/20 16:49 Consult Physician Urgent Consulting Provider: Kentrell Hendricks Consult Reason/Comments: Bradycardia, syncope Do you want consulting provider notified?: Yes 06/16/20 11:34 Consult Physician Routine Consulting Provider: Irving Go Consult Reason/Comments: possible seizure Do you want consulting provider notified?: Yes Primary care physician: Aparna Singh [facility] Course: Mr. Tamayo is a 55-year-old male, who follows with Dr. Singh in outpatient setting, with a past medical history of hyperlipidemia, nephrolithiasis coming in with a chief complaint of right-sided upper muscle spasm. Patient states that he was playing golf and pulled a muscle couple of weeks back and on Saturday glass tinter patient was trying to adjust his thermostat, when he turned he felt a severe sharp pain in his right upper back and fell. His was in on the room and when he came to check on him she told him that his eyes were popped out and that he lost control of his bladder. Patient denies having any tongue bites. He could only feel a sharp pain in his back and later noticed that he was on the floor. Patient denies hitting his head. He denies having any headaches or blurring of vision. Patient states he had an episode of passing out in September 2019, that he thinks happened because he of alcohol intoxication. Patient denies having any history of seizures. He denies having any family history of seizures. Patient drinks only over the weekends. Patient denied having any chest pain or palpitations. He does not have any underlying cardiac history. He has 10 pack years of smoking quit 10-15 years back. He does not take any medications on a regular basis. When he had this back pain he took a muscle relaxant from his friend, he does not know what medication it is but he took 2 pills. His pain is mostly on the right upper back, does not radiate. It is worse and on turning or twisting in certain angle. Patient denies having any tingling or numbness in his feet. He thinks he tore a muscle. Patient denies having any pain radiating from the back to his groin. No blood in his urine. No dysuria or hematuria. Patient denies having any fevers chills or rigors. Patient also states that he was scheduled for a stress test but could not do it as he was told that he had an abnormal EKG he did states that he had a cardiac cath 12 years ago had some issues. In the ER patient had an EKG showing sinus bradycardia with a heart rate of 20. Patient also had a CTA of the chest showing no evidence of PE, borderline cardiomegaly. Probable cortical cyst present in the left lower lobe measuring approximately 19 mm. Patient's labs are reviewed white count of 5.7, hemoglobin 13.1 platelets 205. PT/INR normal. Sodium 138, pronation 4.5, chloride 103, bicarbonate 28, when necessary 19, creatinine 0.85. Urine analysis is negative for leukocyte esterase or blood. Hospital course -neurology and cardiology consults were obtained. As a work-up for seizures, patient had a CT of the head that was negative he had EEG that was within normal limits. As the patient continued to have left-sided back pain and MRI of the lumbar spine/thoracic spine was obtained did not show any significant abnormalities. Cardiology suggested 30-day event monitor upon discharge and follow-up with Dr. Jolly in 6 weeks. He was also recommended to have a sleep study done as outpatient. So the patient was discharged home on Motrin. DISCHARGE DIAGNOSIS Syncopal episode Severe right-sided back muscle spasm Bradycardia Dyslipidemia Follow-up: He is advised to follow-up with his PCP Dr. Singh in 2-3 days. Also advised follow-up with cardiology in 6 weeks. Patient Condition at Discharge: Fair Plan - Discharge Summary New Discharge Prescriptions: No Action Ibuprofen [Motrin Ib] 600 mg PO DAILY Ibuprofen [Motrin Ib] 400 mg PO Q6H PRN PRN Reason: Pain Discharge Medication List Ibuprofen [Motrin Ib] 400 mg PO Q6H PRN 06/15/20 [History] Ibuprofen [Motrin Ib] 600 mg PO DAILY 06/15/20 [History] Follow up Appointment(s)/Referral(s): Aparna Singh III, MD [Primary Care Provider] - 1-2 days Rober Guerra MD [STAFF PHYSICIAN] - 6 Weeks Patient Instructions/Handouts: Syncope (GEN), Low Back Strain (GEN) Discharge Disposition: HOME SELF-CARE
== END 2020-06-17 19:35 | disposition home or self-care (01) ==
LOC: EC 13:37 → 3NCARDOBS 16:26
PROVIDERS: ADMIT Hospitalist; ATTEND Hospitalist
DX: R55 Syncope and collapse (principal); M62.830 Muscle spasm of back; R00.1 Bradycardia, unspecified; R61 Generalized hyperhidrosis; R32 Unspecified urinary incontinence; R06.02 Shortness of breath; R94.31 Abnormal electrocardiogram [ECG] [EKG]; E78.5 Hyperlipidemia, unspecified; M54.5 Low back pain; M54.6 Pain in thoracic spine; X50.0XXA Overexertion from strenuous movement or load, initial encounter; Z79.1 Long term (current) use of non-steroidal anti-inflammatories (NSAID); Z98.890 Other specified postprocedural states; Z87.442 Personal history of urinary calculi; Z87.891 Personal history of nicotine dependence
CPT/HCPCS: 93005 ×2; 96360; 99285; 36415; 95819; 93306; 93270; 85379; 80061; 80053; 84443; 82550; 83735; 84484 ×2; 85025; 85610; 85730; 81003; 71046; 70450; 71275; 72146; 72148; G0378 ×3; Q9967

== ENCOUNTER 2020-12-05 07:51 | Day surgery (SDC) | payer OTHER ==
[2020-12-01 13:11] VITALS: BMI 24.4
[~2020-12-05 07:51] MED LIST: ACETAMINOPHEN TAB 500 MG TAB PO PRN; HEPARIN SODIUM,PORCINE 5,000 UNIT/ML 1 ML VIAL SQ PRN
--- NOTE | 2020-12-05 07:54 | P.GSHP ---
History of Present Illness H&P Date: 12/05/20 Chief Complaint: Bilateral inguinal hernia 55-year-old male seen in the office in October. Patient previously had a known left inguinal hernia that was never repaired. Recently has had more symptoms on the right-hand side with a large bulge there as well. No prior repair bilaterally. No change in bowel habits. Past Medical History Past Medical History: Hyperlipidemia Additional Past Medical History / Comment(s): HX KIDNEY STONES History of Any Multi-Drug Resistant Organisms: None Reported Past Surgical History: Adenoidectomy, Heart Catheterization, Orthopedic Surgery, Tonsillectomy Additional Past Surgical History / Comment(s): RT ROTATOR CUFF REPAIRED, Past Anesthesia/Blood Transfusion Reactions: No Reported Reaction Smoking Status: Former smoker - Past Family History Mother Family Medical History: No Reported History Medications and Allergies Home Medications Medication Instructions Recorded Confirmed Type Ginkgo Biloba 500 mg PO DAILY 12/01/20 12/01/20 History Red Yeast Rice 600 mg PO DAILY 12/01/20 12/01/20 History Allergies Allergy/AdvReac Type Severity Reaction Status Date / Time No Known Allergies Allergy Verified 12/01/20 12:45 Surgical - Exam Physical exam: General: Well-developed, well-nourished HEENT: Normocephalic, sclerae nonicteric Abdomen: Nontender, nondistended, reducible bilateral inguinal hernia Extremities: No edema Neuro: Alert and oriented Assessment and Plan (1) Bilateral inguinal hernia Narrative/Plan: 55-year-old male with bilateral inguinal hernia on exam. We'll proceed with laparoscopic da Rupert assisted repair of bilateral inguinal hernia with mesh, possible open. Risks of bleeding, infection, recurrence, bladder and bowel injury, numbness, nerve injury, conversion to an open procedure were discussed with the patient. The patient understands and wishes to proceed. Current Visit: Yes Status: Acute Code(s): K40.20 - BI INGUINAL HERNIA, W/O OBST OR GANGRENE, NOT SPCF RECUR SNOMED Code(s): 91609745
[2020-12-05] MEDS ORDERED: ONDANSETRON 4 MG/2 ML VIAL ONE (08:08)
[2020-12-05] MEDS ORDERED: LACTATED RINGERS 1,000 ML IV SCH (08:10)
[2020-12-05] MEDS ORDERED: ONDANSETRON 4 MG/2 ML VIAL IVP ONE (08:10)
[2020-12-05] MEDS ORDERED: LIDOCAINE 1% (10MG/ML) FOR IV START INTRADERMA PRN (08:10)
[2020-12-05] MEDS ORDERED: MIDAZOLAM 2 MG/2 ML VIAL IV PRN (08:10)
[2020-12-05] MEDS ORDERED: DEXAMETHASONE SOD PHOSPHATE 4 MG/ML 1 ML VIAL IV ONE (08:10)
[2020-12-05] MEDS ORDERED: HYDROmorphone 0.5 MG/0.5 ML SYRINGE IVP PRN (08:10)
[2020-12-05 08:24] VITALS: RESP 16
[2020-12-05 09:03] LABS: Basophils # (A) 0.1 k/uL (0-0.2); Basophils % (A) 1 %; Eosinophils # (A) 0.3 k/uL (0-0.7); Eosinophils % (A) 7 %; HCT 37.3 % (39.0-53.0); HGB 13.5 gm/dL (13.0-17.5); Lymphocytes # (A) 1.4 k/uL (1.0-4.8); Lymphocytes % (A) 37 %; MCHC 36.1 g/dL (31.0-37.0); MCV 82.9 fL (80.0-100.0); Mean Platelet Volume 7.4; Monocytes # (A) 0.3 k/uL (0-1.0); Monocytes % (A) 7 %; Neutrophils # (A) 1.8 k/uL (1.3-7.7); Neutrophils % (A) 46 %; Platelet Count 181 k/uL (150-450); RDW 12.4 % (11.5-15.5); WBC 3.9 k/uL (3.8-10.6)
[2020-12-05] MEDS ORDERED: ROCURONIUM 10 MG/ML (10 ML VIAL) IV ONE (09:25)
[2020-12-05] MEDS ORDERED: MIDAZOLAM 2 MG/2 ML VIAL ONE (09:25)
[2020-12-05] MEDS ORDERED: KETOROLAC 15 MG/ML 1 ML VIAL ONE (09:25)
[2020-12-05] MEDS ORDERED: PROPOFOL 10 MG/ML 20 ML VIAL IV ONE (09:25)
[2020-12-05] MEDS ORDERED: NEOSTIGMINE 1 MG/ML 10 ML VIAL ONE (09:25)
[2020-12-05] MEDS ORDERED: GLYCOPYRROLATE 0.2 MG/ML 2 ML VIAL ONE (09:25)
[2020-12-05] MEDS ORDERED: SUCCINYLCHOLINE CHLORIDE 100 MG/5 ML SYR IV ONE (09:25)
[2020-12-05] MEDS ORDERED: HYDROmorphone (PF) 1 MG/ML ONE (09:25)
[2020-12-05] MEDS ORDERED: LIDOCAINE 1% INJ 10MG/ML (20 ML MDV) ONE (09:25)
[2020-12-05] MEDS ORDERED: fentaNYL (PF) 50 MCG/ML 2 ML AMP ONE (09:25)
[2020-12-05] MEDS ORDERED: BUPIVACAINE (PF) 0.25% 30 ML VIAL SQ ONE (09:30)
[2020-12-05] MEDS ORDERED: LACTATED RINGERS 1,000 ML IV ONE (10:19)
--- NOTE | 2020-12-05 11:50 | P.OP ---
Date of Procedure: 12/05/20 Procedure(s) Performed: PREOPERATIVE DIAGNOSIS: Bilateral inguinal hernia POSTOPERATIVE DIAGNOSIS: Same PROCEDURE: Laparoscopic repair bilateral inguinal hernia with the da Rupert robot assistance with mesh SURGEON: Pamela EBL: Minimal ANESTHESIA: General COMPLICATIONS: None OPERATIVE PROCEDURE: Patient was placed in the operating table in the supine position. The patient was placed under general anesthesia. The abdomen was prepped and draped in usual sterile fashion. A small curvilinear supraumbilical incision was made. The fascia was retracted anteriorly with Perry forceps. The Veress needle was inserted. The saline drop test was normal. Insufflation took place to 15 mmHg. An 8 mm trocar was placed into the peritoneal cavity. 2 additional 8 mm trochars were placed in the right upper quadrant and left upper quadrant under visualization. The robotic arms were then brought in and docked into place. The fenestrated bipolar was used in the left arm and the laparoscopic aleida was utilized in the right arm. A 30 8 mm scope was used in the up position. The peritoneal cavity was inspected. The patient had a moderate-sized right inguinal hernia and a large left inguinal hernia. Both were indirect hernias. The right side was first addressed. The peritoneum was incised in a horizontal fashion cephalad to the internal inguinal ring. Following that careful dissection of the preperitoneal space took place. This took place using both electrocautery, sharp dissection but primarily blunt dissection. Visualization of the pubic tubercle and Kwadwo's ligament took place medially. Full dissection took place laterally as well. The hernia sac was fully dissected. No defects in the peritoneum were noted. The left side was then addressed. Again a mirror incision on the peritoneum took place. The preperitoneal space was fully dissected. The patient on the left-hand side had significant induration of the hernia sac. Multiple small defects in the hernia sac were created in reducing it. Once it was fully reduced we had a window in the retropubic space connecting the 2 dissections quite well. The extra-large Bard 3-D mesh was utilized on the left and the large Bard 3-D mesh was used on the right. Once they were overlapped a 20V lock suture was used to suture them to one another and to the tissues in the retropubic space. Following that the right sided peritoneum was closed using a running 20V lock suture. The peritoneal sac was incorporated into the closure to help prevent future recurrence. The left side was then addressed. The peritoneal incision was closed using a running 20V lock suture. I then used a additional 20V lock suture to reapproximate the multiple small defects in the peritoneum. We had the peritoneum fully closed at this point. The pneumoperitoneum was then evacuated. The skin of all 3 sites was closed using a 4-0 Monocryl stitch. Skin glue was then applied. DISPOSITION: Stable to recovery room
[2020-12-05 11:55] VITALS: TEMP 98.9
[2020-12-05] MEDS ORDERED: IBUPROFEN 600 MG TAB PO SCH (12:00)
[2020-12-05] MEDS ORDERED: oxyCODONE-APAP 5-325MG 1 EACH TAB PO ONE (13:22)
[2020-12-05 13:36] VITALS: BP 136/81; PULSE 73
[2020-12-05] MEDS ORDERED: ACETAMINOPHEN TAB 325 MG TAB PO SCH (15:00)
== END 2020-12-05 14:38 | disposition home or self-care (01) ==
LOC: OR 07:51
PROVIDERS: ATTEND Surgery
DX: K40.20 Bilateral inguinal hernia, without obstruction or gangrene, not specified as recurrent (principal); E78.5 Hyperlipidemia, unspecified; K08.89 Other specified disorders of teeth and supporting structures; K21.9 Gastro-esophageal reflux disease without esophagitis; Z87.442 Personal history of urinary calculi; Z90.89 Acquired absence of other organs; Z98.890 Other specified postprocedural states; Z87.891 Personal history of nicotine dependence
CPT/HCPCS: 49650; S2900; 85025

== ENCOUNTER 2021-09-01 14:51 | Emergency (ER) | payer BC, OTHER ==
--- NOTE | 2021-09-01 15:40 | ED ---
General Adult HPI - General Stated complaint: Covid +, Weakness - History of Present Illness Initial comments: Ted is a 56yo M who presents to the ER today via private vehicle for evaluation of persistent COVID symptoms. Patient became symptomatic on of last week, he tested positive on Saturday. He has persistent subjective fever/chills, fatigue, body aches. Denies chest pain or shortness of breath. - Related Data Home Medications Medication Instructions Recorded Confirmed Acetaminophen [Tylenol Arthritis] 650 mg PO Q6H PRN 09/01/21 09/01/21 D-Methorphan/PE/Acetaminophen 1 tab PO Q6H PRN 09/01/21 09/01/21 [Tylenol Cold Max Day Caplet] Ibuprofen [Motrin Ib] 400 mg PO Q8H PRN 09/01/21 09/01/21 Allergies Allergy/AdvReac Type Severity Reaction Status Date / Time No Known Allergies Allergy Verified 09/01/21 17:48 Review of Systems ROS Statement: Those systems with pertinent positive or pertinent negative responses have been documented in the HPI. ROS Other: All systems not noted in ROS Statement are negative. Past Medical History Past Medical History: Hyperlipidemia Additional Past Medical History / Comment(s): HX KIDNEY STONES History of Any Multi-Drug Resistant Organisms: None Reported Past Surgical History: Adenoidectomy, Heart Catheterization, Orthopedic Surgery, Tonsillectomy Additional Past Surgical History / Comment(s): RT ROTATOR CUFF REPAIRED, Past Anesthesia/Blood Transfusion Reactions: No Reported Reaction Smoking Status: Former smoker - Past Family History Mother Family Medical History: No Reported History General Exam - General Exam Comments Initial Comments: Physical Exam GENERAL: Appears dehydrated HENT: Normocephalic, Atraumatic. EYES: PERRL, EOMI PULMONARY: Unlabored respirations. CARDIOVASCULAR: RRR Warm and well perfused extremities ABDOMEN: Non-distended SKIN: No rashes or bruising : Deferred NEUROLOGIC: Alert and oriented Normal speech Normal gait MUSCULOSKELETAL: Moving all extremities with no apparent injury PSYCHIATRIC: No SI/HI Course Vital Signs 09/01/21 09/01/21 15:37 17:57 Temperature 98.5 F 98.7 F Pulse Rate 77 74 Respiratory 23 18 Rate Blood Pressure 110/69 112/77 O2 Sat by Pulse 97 98 Oximetry Medical Decision Making - Medical Decision Making Patient was seen and evaluated, patient with BMI 25.8 meets criteria for monoclonal antibody therapy, patient consents Labs with evidence of dehydration with hyponatremia, patient received 2 L IV fluid no reaction a monoclonal antibodies patient stable for discharge home - Lab Data Result diagrams: 09/01/21 17:14 09/01/21 17:14 Lab Results 09/01/21 09/01/21 Range/Units 17:14 17:14 WBC 3.6 L (3.8-10.6) k/uL RBC 4.91 (4.30-5.90) m/uL Hgb 14.2 (13.0-17.5) gm/dL Hct 40.8 (39.0-53.0) % MCV 83.2 (80.0-100.0) fL MCH 29.0 (25.0-35.0) pg MCHC 34.9 (31.0-37.0) g/dL RDW 12.5 (11.5-15.5) % Plt Count 111 L (150-450) k/uL MPV 9.0 Neutrophils % 63 % Lymphocytes % 32 % Monocytes % 3 % Eosinophils % 0 % Basophils % 0 % Neutrophils # 2.3 (1.3-7.7) k/uL Lymphocytes # 1.2 (1.0-4.8) k/uL Monocytes # 0.1 (0-1.0) k/uL Eosinophils # 0.0 (0-0.7) k/uL Basophils # 0.0 (0-0.2) k/uL Sodium 130 L (137-145) mmol/L Potassium 4.1 (3.5-5.1) mmol/L Chloride 101 (98-107) mmol/L Carbon Dioxide 16 L (22-30) mmol/L Anion Gap 13 mmol/L BUN 24 H (9-20) mg/dL Creatinine 1.01 (0.66-1.25) mg/dL Est GFR (CKD-EPI)AfAm >90 (>60 ml/min/1.73 sqM) Est GFR (CKD-EPI)NonAf 82 (>60 ml/min/1.73 sqM) Glucose 110 H (74-99) mg/dL Calcium 8.9 (8.4-10.2) mg/dL Total Bilirubin 0.8 (0.2-1.3) mg/dL AST 42 (17-59) U/L ALT 31 (4-49) U/L Alkaline Phosphatase 120 (38-126) U/L Total Protein 7.7 (6.3-8.2) g/dL Albumin 4.4 (3.5-5.0) g/dL Disposition Clinical Impression: COVID-19 Disposition: HOME SELF-CARE Condition: Stable Instructions (If sedation given, give patient instructions): Coronavirus Disease 2019 (COVID-19) Is patient prescribed a controlled substance at d/c from ED?: No Referrals: Aparna Singh III, MD [Primary Care Provider] - 1-2 days
[2021-09-01] MEDS ORDERED: SODIUM CHLORIDE 0.9% 2,000 ML IV ONE (16:06)
[2021-09-01] MEDS ORDERED: KETOROLAC 15 MG/ML 1 ML VIAL IVP STA ×2 (16:07→17:13)
[2021-09-01] MEDS ORDERED: SODIUM CHLORIDE 0.9% 50 ML IVPB ONE (17:00)
[2021-09-01] MEDS ORDERED: CASIRIVIMAB (REGN10933) (EUA) 600 MG, IMDEVIMAB (REGN10987) (EUA) 600 MG in SODIUM CHLO... IVPB ONE (17:00)
[2021-09-01 17:21] LABS: Basophils % (A) 0 %; Eosinophils % (A) 0 %; HCT 40.8 % (39.0-53.0); HGB 14.2 gm/dL (13.0-17.5); Lymphocytes # (A) 1.2 k/uL (1.0-4.8); Lymphocytes % (A) 32 %; MCHC 34.9 g/dL (31.0-37.0); MCV 83.2 fL (80.0-100.0); Monocytes # (A) 0.1 k/uL (0-1.0); Monocytes % (A) 3 %; Neutrophils # (A) 2.3 k/uL (1.3-7.7); Neutrophils % (A) 63 %; Platelet Count 111 k/uL (150-450); RBC 4.91 m/uL (4.30-5.90); RDW 12.5 % (11.5-15.5); WBC 3.6 k/uL (3.8-10.6)
[2021-09-01 17:31] LABS: ALT 31 U/L (4-49); AST 42 U/L (17-59); African American GFR (CKD) >90 (>60 ml/min/1.73 sqM); Albumin 4.4 g/dL (3.5-5.0); Alkaline Phosphatase 120 U/L (38-126); Anion Gap 13 mmol/L; Blood Urea Nitrogen 24 mg/dL (9-20); Calcium 8.9 mg/dL (8.4-10.2); Carbon Dioxide 16 mmol/L (22-30); Chloride 101 mmol/L (98-107); Glucose 110 mg/dL (74-99); Non-African American GFR(CKD) 82 (>60 ml/min/1.73 sqM); Potassium 4.1 mmol/L (3.5-5.1); Sodium 130 mmol/L (137-145); Total Bilirubin 0.8 mg/dL (0.2-1.3); Total Protein 7.7 g/dL (6.3-8.2)
[2021-09-01 17:58] VITALS: RESP 18
[2021-09-01 19:42] VITALS: BP 125/54; PULSE 78; TEMP 98.2
== END 2021-09-01 19:42 | disposition home or self-care (01) ==
LOC: EC 14:51
DX: U07.1 COVID-19 (principal); E78.5 Hyperlipidemia, unspecified; Z87.442 Personal history of urinary calculi; Z90.89 Acquired absence of other organs; Z87.891 Personal history of nicotine dependence
CPT/HCPCS: 99283; 96365; 96375; 96361 ×2; 36415; 80053; 85025; J1885; Q0243

== ENCOUNTER → 2024-06-18 | Outpatient (CLI) | payer BC | END | disposition home or self-care (01) | LOC: LABPRL 11:45 | PROVIDERS: ATTEND Family Medicine | DX: Z00.00 Encounter for general adult medical examination without abnormal findings (principal); Z12.5 Encounter for screening for malignant neoplasm of prostate; E55.9 Vitamin D deficiency, unspecified | CPT/HCPCS: 84439; 80061; 80053; 84443; 85025; 82306; 83036; G0103 ==

== ENCOUNTER → 2024-08-12 | Outpatient (CLI) | payer BC ==
--- NOTE | 2024-08-12 13:21 | US ---
EXAMINATION TYPE: US carotid duplex BILAT DATE OF EXAM: 08/12/2024 COMPARISON: NONE CLINICAL INDICATION: Male, 59 years old with history of R55 SYNCOPE R00.1 BRADYCARDIA; CAD. Low BP. TECHNIQUE: Grayscale, color Doppler and spectral Doppler evaluation of the bilateral carotid systems and vertebral arteries.Indirect Doppler criteria was utilized. FINDINGS: EXAM MEASUREMENTS: RIGHT: Peak Systolic Velocity (PSV) cm/sec ----- Right CCA: 102.9 ----- Right ICA: 88.9 ----- Right ECA: 65.1 ICA/CCA ratio: 0.9 RIGHT: End Diastole cm/sec ----- Right CCA: 23.7 ----- Right ICA: 35.1 ----- Right ECA: 15.6 LEFT: Peak Systolic Velocity (PSV) cm/sec ----- Left CCA: 85.3 ----- Left ICA: 98.2 ----- Left ECA: 82.3 ICA/CCA ratio: 1.2 LEFT: End Diastole cm/sec ----- Left CCA: 29.2 ----- Left ICA: 42.6 ----- Left ECA: 14.2 VERTEBRALS (direction of flow): Right Vertebral: Antegrade Left Vertebral: Antegrade Rhythm: Normal SAP CONSULTANT NOTES: Bilateral wall thickening. No elevated velocities. IMPRESSION: Right: Less than 50% stenosis of the carotid bifurcation. Normal (no stenosis)=ICA PSV < 125 cm/s: ra santy < 2.0: ICA EDV<40 cm/s. Left: Less than 50% stenosis of the carotid bifurcation. Normal (no stenosis)=ICA PSV < 125 cm/s: rat io < 2.0: ICA EDV<40 cm/s. Criteria for Assigning % of Stenosis / Diameter reduction (Estimation based on the indirect measurements of the internal carotid artery velocities (ICA PSV). 1. Normal (no stenosis)=ICA PSV < 125 cm/s: ratio < 2.0: ICA EDV<40 cm/s. 2. Less than 50% stenosis=ICA PSV < 125 cm/s: ratio < 2.0: ICA EDV<40 cm/s. 3. 50 to 69% stenosis=ICA PSV of 125 to 230 cm/s: ration 2.0 ? 4.0: ICA EDV 40-100 cm/s. 4. Greater than 70% stenosis to near occlusion= ICA PSV > 230 cm/s: ratio > 4.0: ICA EDV > 100 cm/s. 5. Near occlusion= ICA PSV velocities may be low or undetectable: variable ratio and ICA EDV. 6. Total occlusion=unable to detect flow. [facility], , 08/12/2024 1:19 PM
--- NOTE | 2024-08-13 07:15 | CA ---
Transthoracic Echo Report Name: Ted Tamayo Age: 59 Gender: M : 1965 Exam Date: 08/12/2024 13:42 Exam Location: [facility] [place] [facility] Ht (in): 73 Wt (lb): 183 Ordering Physician: Nathan Arreguin DO Attending/Referring Phys: Diamond Mounter Yelena Stovall RDCS Procedure CPT: Indications: Bradycardia Cardiac Hx: Technical Quality: Good Contrast 1: Total Dose (mL): Contrast 2: Total Dose (mL): MEASUREMENTS (Male / Female) Normal Values 2D ECHO LV Diastolic Diameter PLAX 5.1 cm 4.2 - 5.9 / 3.9 - 5.3 cm LV Systolic Diameter PLAX 3.4 cm IVS Diastolic Thickness 1.2 cm 0.6 - 1.0 / 0.6 - 0.9 cm LVPW Diastolic Thickness 1.2 cm 0.6 - 1.0 / 0.6 - 0.9 cm LV Relative Wall Thickness 0.5 RV Internal Dim ED PLAX 3.4 cm LA Systolic Diameter LX 3.8 cm 3.0 - 4.0 / 2.7 - 3.8 cm LV Diastolic Volume MOD 4C 117.6 cm??? LV Systolic Volume MOD 4C 55.0 cm??? LV Ejection Fraction MOD 4C 53.3 % LV Cardiac Index MOD 4C 1664.0 cm???/min???m??? LV Diastolic Length 4C 9.2 cm LV Systolic Length 4C 7.0 cm LV Diastolic Volume MOD 2C 134.1 cm??? LV Systolic Volume MOD 2C 44.3 cm??? LV Ejection Fraction MOD 2C 66.9 % LV Cardiac Index MOD 2C 2385.1 cm???/min???m??? LV Diastolic Length 2C 9.6 cm LV Systolic Length 2C 7.3 cm LA Volume 82.1 cm??? 18 - 58 / 22 - 52 cm??? LA Volume Index 39.7 cm???/m??? 16 - 28 cm???/m??? M-MODE Aortic Root Diameter MM 3.9 cm AV Cusp Separation MM 2.3 cm DOPPLER AV Peak Velocity 155.1 cm/s AV Peak Gradient 9.6 mmHg AI Peak Velocity 274.6 cm/s AI Peak Gradient 30.2 mmHg AI Pressure Half Time 1062.6 ms MV Area PHT 2.3 cm??? Mitral E Point Velocity 76.6 cm/s Mitral A Point Velocity 75.6 cm/s Mitral E to A Ratio 1.0 MV Deceleration Time 325.7 ms TR Peak Velocity 224.7 cm/s TR Peak Gradient 20.2 mmHg Right Ventricular Systolic Press 24.3 mmHg FINDINGS Left Ventricle Left ventricular ejection fraction is estimated at 55-60 %. Left ventricular cavity size normal. Normal left ventricular systolic function with no obvious regional wall motion abnormalities. Mildly increased left ventricular wall thickness. Right Ventricle Right ventricular systolic pressure within normal limits.normal right ventricular size and function. Right Atrium Mild right atrial dilatation. No right atrial thrombus or mass seen. Left Atrium Moderately increased left atrial volume. No left atrial thrombus or mass present. Mitral Valve Structurally normal mitral valve. Mild mitral regurgitation. Aortic Valve Trileaflet aortic valve. Trace to mild aortic regurgitation. Tricuspid Valve Structurally normal tricuspid valve. Mild tricuspid regurgitation. Pulmonic Valve Structurally normal pulmonic valve. Trace pulmonic regurgitation. Pericardium No pericardial or pleural effusion. Aorta Mild aortic dilatation at the level of the sinuses of valsalva 39 mm CONCLUSIONS 1. Normal left ventricular size and systolic function 2. Mild mitral and tricuspid regurgitation 3. Trace to mild aortic regurgitation Previewed by: Dr. Awa Beltre MD (Electronically Signed) Final Date: 13 August 2024 07:14
== END | disposition home or self-care (01) ==
LOC: RADUSWWP 12:48
PROVIDERS: ATTEND Family Medicine
CPT/HCPCS: 93306; 93880